=== PATIENT | male | born 1995 | race Two or more races ===

== ENCOUNTER 2019-02-18 01:42 | Emergency (ER) | payer SELFPAY ==
[~2019-02-18] VITALS: Ht 182.9 cm; Wt 79.4 kg
--- NOTE | 2019-02-18 01:51 | NUR ---
ED Nurse Note: pt brought in by [facility] from a bar, c/c ETOH, per EMS report, pt's friends called 911, pt was unresponsive on scene. noted pt sleeping at this time, vss, resp even and unlabored on RA, will cont monitor.
[2019-02-18 01:53] VITALS: BP 127/74
--- NOTE | 2019-02-18 02:41 | NUR ---
ED Nurse Note: pt sleeping at this time, nonarousable to voice nor light pain, vss, resp even and unlabored on RA, airway intact, will cont monitor. all safety measures in place.
[2019-02-18 02:53] VITALS: BP 113/76
--- NOTE | 2019-02-18 03:29 | Emergency Room Report ---
History of Present Illness General Chief Complaint: Alcohol Intoxication Source: EMS Present Illness HPI This is a 24-year-old male with unknown past medical history. He presents with chief complaint of alcohol intoxication. He was at a [employer] party drinking with his friends. He became unresponsive so friends called 911. Per EMS his friends were also intoxicated but not to the severity of patient. There is no trauma. He did have some vomiting at the [employer] party. Unable get any other history from this patient of his intoxication. Allergies: Coded Allergies: UNABLE TO ASSESS (Unverified , 02/18/19) Patient History Past Medical History: see triage record, old chart reviewed Past Surgical History: none Pertinent Family History: none Social History: Reports: alcohol use Immunizations: other Reviewed Nursing Documentation: PMH: Agreed; PSxH: Agreed Nursing Documentation-PMH Past Medical History: Deferred Review of Systems All Other Systems: limited - Secondary to intoxication Physical Exam Vital Signs Date Time Temp Pulse Resp B/P (MAP) Pulse Ox O2 Delivery O2 Flow Rate FiO2 02/18/19 01:46 99.0 102 12 110/87 (95) 98 Room Air Sp02 EP Interpretation: reviewed, normal General Appearance: well appearing, no apparent distress, other - Very intoxicated Head: normocephalic, atraumatic Eyes: bilateral eye PERRL, bilateral eye EOMI ENT: hearing grossly normal, normal pharynx Neck: full range of motion, supple, no meningismus Respiratory: chest non-tender, lungs clear, normal breath sounds Cardiovascular #1: regular rate, rhythm, no murmur Gastrointestinal: normal bowel sounds, non tender, no mass, no organomegaly, no bruit, non-distended Musculoskeletal: back normal, normal range of motion Neurologic: grossly normal - Withdrawal to painful stimuli Psychiatric: mood/affect normal Skin: warm/dry Medical Decision Making Diagnostic Impression: Primary Impression: Acute alcoholic intoxication Qualified Codes: F10.920 - Alcohol use, unspecified with intoxication, uncomplicated ER Course Patient presents with alcohol intoxication. No trauma to warrant x-ray or CT scan. Will observe until clinical sobriety. Last Vital Signs Date Time Temp Pulse Resp B/P (MAP) Pulse Ox O2 Delivery O2 Flow Rate FiO2 02/18/19 01:53 78 12 Room Air 02/18/19 01:53 97.8 127/74 98 Status: improved Disposition: HOME, SELF-CARE Condition: Stable Patient Instructions: Alcohol Intoxication, [id number] Additional Instructions: Follow-up with your doctor in 7 days. Return if worse. Yakov Valdes MD Feb 18, 2019 03:29
[2019-02-18 03:53] VITALS: BP 121/67
--- NOTE | 2019-02-18 04:41 | NUR ---
ED Nurse Note: pt sleeping at this time, unresponsive to painful stimuli and verbal stimuli, vss, resp even and unlabored, will cont monitor.
[2019-02-18 04:53] VITALS: BP 118/66
--- NOTE | 2019-02-18 06:00 | NUR ---
ED Nurse Note: pt now awake and alert, ERMD notified regarding pt's condition.
[2019-02-18 06:10] VITALS: BP 118/67
--- NOTE | 2019-02-18 06:10 | NUR ---
ED Nurse Note: pt awake and alert, AA&ox4, gcs=15, pt states he doesn't recall what happened last night but reports he was out drinking with pt's friends. pt denies n/v/d. able to tolerate po fluids well. pt cleared to be d/c per ERMD, pt discharge and aftercare instruction provided, pt advised to follow up with pcp or return if changes in condition, pt advised to stop drinking alcohol. pt left w/ all belongings, pt id band removed, vss, ambulatory w/ steady gait, pt states he is taking lyft home.
== END 2019-02-18 06:10 | disposition home or self-care (01) ==
LOC: EDBD 04:23 → EMR 04:23
DX: F10.920 Alcohol use, unspecified with intoxication, uncomplicated (principal)
CPT/HCPCS: 99283